=== PATIENT | male | born 1995 | race Caucasian/White ===

== ENCOUNTER 2022-03-29 16:47 | Observation (INO) | payer SELFPAY ==
[~2022-03-29] VITALS: Ht 182 cm; Wt 76.8 kg
[2022-03-29 18:56] LABS: BASOPHILS % (AUTO) 0 % (0-10); EOSINOPHILS % (AUTO) 1 % (0-10); HEMATOCRIT 45 % (40-54); LYMPHOCYTES # (AUTO) 1.1 10^3/uL (1.0-4.0); LYMPHOCYTES % (AUTO) 17 % (12-44); MEAN CORPUSCULAR HEMOGLOBIN 31 pg (25-34); MEAN CORPUSCULAR HGB CONC 35 g/dL (32-36); MEAN CORPUSCULAR VOLUME 88 fL (80-99); MEAN PLATELET VOLUME 9.6 fL (9.0-12.2); MONOCYTES # (AUTO) 0.4 10^3/uL (0.0-1.0); MONOCYTES % (AUTO) 6 % (0-12); NEUTROPHILS # (AUTO) 4.9 10^3/uL (1.8-7.8); NEUTROPHILS % (AUTO) 76 % (42-75); PLATELET COUNT 287 10^3/uL (130-400); WHITE BLOOD COUNT 6.4 10^3/uL (4.3-11.0)
[2022-03-29 19:03] LABS: INR 1.1 (0.8-1.4); PROTHROMBIN TIME PATIENT 14.2 SEC (12.2-14.7)
[2022-03-29 19:07] LABS: ALBUMIN 4.4 GM/DL (3.2-4.5); BILIRUBIN,TOTAL 0.4 MG/DL (0.1-1.0); CALCIUM 9.6 MG/DL (8.5-10.1); CREATININE SERUM 0.86 MG/DL (0.60-1.30); MAGNESIUM 1.9 MG/DL (1.6-2.4); POTASSIUM 3.6 MMOL/L (3.6-5.0); TOTAL PROTEIN 7.5 GM/DL (6.4-8.2)
--- NOTE | 2022-03-29 19:17 | ED Syncope ---
General Chief Complaint: Dizziness/Syncope Stated Complaint: ABNORMAL EKG Nursing Triage Note: PT AMB TO RM 10 WITH C/O SUDDEN ONSET OF DIZZINESS THIS AFTERNOON WHILE OUTSIDE WITH HIS KIDS. HE STATES HE KNELT DOWN AND WENT BLACK FOR A COUPLE OF SECONDS Source of Information: Patient Exam Limitations: No Limitations History of Present Illness Date Seen by Provider: Mar 29, 2022 Time Seen by Provider: 18:47 Initial Comments This 26-year-old gentleman presents to the emergency room with complaints of a syncopal episode that occurred earlier this afternoon. He was outside picking up his son when he suddenly felt lightheaded and dizzy. He went down to the ground and believes he had a brief loss of consciousness for a few seconds. He denies any chest pain or shortness of breath at any time today. He has had no nausea, vomiting or diarrhea except for some brief nausea at the time of the incident. He denies any injury when he fell. He reports prior episodes of chest pain that affected much of his left side including his arm. He reports he has never had a formal work-up for this chest pain. He presented to the walk-in clinic in [place] after the event this afternoon. An EKG was performed there demonstrating some ST elevation in V2 and V3. He was then directed to the ER. He denies any recent illness or drug or alcohol use. He reports a history of bradycardia and prior episodes of lightheadedness but he has not ever had syncope before today. He has no local provider. He saw Dr. Garcia years ago when he was in high school. Patient was moving dogs around the yard and on a chain just prior to the incident. He was not doing any strenuous activity. Allergies and Home Medications Allergies Coded Allergies: No Known Drug Allergies (Unverified , 03/29/22) Patient Home Medication List Home Medication List Reviewed: Yes Lisinopril (Lisinopril) 10 Mg Tablet, 10 MG PO DAILY Prescribed by: MARY JO BELLAMY on 03/30/22 0915 Last Action: Reviewed Review of Systems Constitutional: no symptoms reported EENTM: no symptoms reported Respiratory: no symptoms reported Cardiovascular: see HPI Gastrointestinal: see HPI Genitourinary: no symptoms reported Musculoskeletal: no symptoms reported Skin: no symptoms reported Psychiatric/Neurological: No Symptoms Reported Past Vlfcnmn-Abadgh-Msfnaa Hx Patient Social History Tobacco Use?: No Smokeless Tobacco Frequency: Current Everyday User Substance use?: No Alcohol Use?: Yes Alcohol type: Beer Alcohol Frequency: Rarely Pt feels they are or have been: No Past Medical History Surgery/Hospitalization HX: HTN, BRADYCARDIA Surgeries: No Respiratory: No Cardiac: Yes (History of bradycardia and chest pain) Neurological: No Genitourinary: No Gastrointestinal: No Musculoskeletal: No Endocrine: No HEENT: No Cancer: No Psychosocial: No Family Medical History Heart Disease (Father of [place] in his 50s) Physical Exam Vital Signs Vital Signs - First Documented 03/29/22 17:05 Temp 36.6 Pulse 60 Resp 18 B/P (MAP) 138/87 (104) Capillary Refill : Height, Weight, BMI Height: '" Weight: lbs. oz. kg; 22.00 BMI Method: General Appearance: No Apparent Distress, WD/WN, Thin HEENT: PERRL/EOMI, Normal ENT Inspection Neck: Normal Inspection; No Carotid Bruit, No JVD Cardiovascular: Regular Rate, Rhythm, No Edema, No Murmur Respiratory: Lungs Clear, Normal Breath Sounds, No Accessory Muscle Use Gastrointestinal: Normal Bowel Sounds, Soft, Tenderness (Epigastrium) Back: Normal Inspection Extremities: Normal Inspection Neurologic/Psychiatric: Alert, Oriented x3, No Motor/Sensory Deficits, Normal Mood/Affect Skin: Normal Color, Warm/Dry Progress/Results/Core Measures Results/Orders Lab Results Laboratory Tests Test 03/29/22 16:55 03/29/22 17:15 Range/Units Urine Opiates Screen NEGATIVE NEGATIVE Urine Oxycodone Screen NEGATIVE NEGATIVE Urine Methadone Screen NEGATIVE NEGATIVE Urine Propoxyphene Screen NEGATIVE NEGATIVE Urine Barbiturates Screen NEGATIVE NEGATIVE Ur Tricyclic Antidepressants Screen NEGATIVE NEGATIVE Urine Phencyclidine Screen NEGATIVE NEGATIVE Urine Amphetamines Screen NEGATIVE NEGATIVE Urine Methamphetamines Screen NEGATIVE NEGATIVE Urine Benzodiazepines Screen NEGATIVE NEGATIVE Urine Cocaine Screen NEGATIVE NEGATIVE Urine Cannabinoids Screen NEGATIVE NEGATIVE White Blood Count 6.4 4.3-11.0 10^3/uL Red Blood Count 5.18 4.30-5.52 10^6/uL Hemoglobin 16.0 13.3-17.7 g/dL Hematocrit 45 40-54 % Mean Corpuscular Volume 88 80-99 fL Mean Corpuscular Hemoglobin 31 25-34 pg Mean Corpuscular Hemoglobin Concent 35 32-36 g/dL Red Cell Distribution Width 11.6 10.0-14.5 % Platelet Count 287 130-400 10^3/uL Mean Platelet Volume 9.6 9.0-12.2 fL Immature Granulocyte % (Auto) 0 % Neutrophils (%) (Auto) 76 H 42-75 % Lymphocytes (%) (Auto) 17 12-44 % Monocytes (%) (Auto) 6 0-12 % Eosinophils (%) (Auto) 1 0-10 % Basophils (%) (Auto) 0 0-10 % Neutrophils # (Auto) 4.9 1.8-7.8 10^3/uL Lymphocytes # (Auto) 1.1 1.0-4.0 10^3/uL Monocytes # (Auto) 0.4 0.0-1.0 10^3/uL Eosinophils # (Auto) 0.0 0.0-0.3 10^3/uL Basophils # (Auto) 0.0 0.0-0.1 10^3/uL Immature Granulocyte # (Auto) 0.0 0.0-0.1 10^3/uL Erythrocyte Sedimentation Rate 4 0-15 MM/HR Prothrombin Time 14.2 12.2-14.7 SEC INR Comment 1.1 0.8-1.4 Activated Partial Thromboplast Time 32 24-35 SEC Sodium Level 142 135-145 MMOL/L Potassium Level 3.6 3.6-5.0 MMOL/L Chloride Level 105 98-107 MMOL/L Carbon Dioxide Level 22 21-32 MMOL/L Anion Gap 15 H 5-14 MMOL/L Blood Urea Nitrogen 15 7-18 MG/DL Creatinine 0.86 0.60-1.30 MG/DL Estimat Glomerular Filtration Rate 122 BUN/Creatinine Ratio 17 Glucose Level 104 70-105 MG/DL Calcium Level 9.6 8.5-10.1 MG/DL Corrected Calcium 9.3 8.5-10.1 MG/DL Magnesium Level 1.9 1.6-2.4 MG/DL Total Bilirubin 0.4 0.1-1.0 MG/DL Aspartate Amino Transf (AST/SGOT) 24 5-34 U/L Alanine Aminotransferase (ALT/SGPT) 20 0-55 U/L Alkaline Phosphatase 50 40-136 U/L Myoglobin 29.6 10.0-92.0 NG/ML Troponin I < 0.028 <0.028 NG/ML C-Reactive Protein High Sensitivity 0.06 0.00-0.50 MG/DL Total Protein 7.5 6.4-8.2 GM/DL Albumin 4.4 3.2-4.5 GM/DL Lipase 36 8-78 U/L TSH [place] Testing 0.83 0.35-4.94 UIU/ML Serum Alcohol < 10 <10 MG/DL My Orders Orders - SENA MASSEY MD Cbc With Automated Diff (03/29/22 18:49) Magnesium (03/29/22 18:49) Chest 1 View, Ap/Pa Only (03/29/22 18:49) Ekg Tracing (03/29/22 18:49) Comprehensive Metabolic Panel (03/29/22 18:49) Myoglobin Serum (03/29/22 18:49) Protime With Inr (03/29/22 18:49) Partial Thromboplastin Time (03/29/22 18:49) O2 (03/29/22 18:49) Monitor-Rhythm Ecg Trace Only (03/29/22 18:49) Ed Iv/Invasive Line Start (03/29/22 18:49) Troponin I [place] (03/29/22 18:49) Alcohol (03/29/22 19:09) Hs C Reactive Protein (03/29/22 19:09) Erythrocyte Sedimentation Rate (03/29/22 19:09) Drug Screen Stat (Urine) (03/29/22 19:09) Lipase (03/29/22 19:09) Thyroid Analyzer (03/29/22 19:09) Vital Signs/I&O 03/29/22 17:05 Temp 36.6 Pulse 60 Resp 18 B/P (MAP) 138/87 (104) Blood Pressure Mean: 104 Progress Progress Note #1: Time: 19:19 Progress Note Patient was seen and examined. Work-up is underway. Vital signs are stable at this time. Heart rate is in the 50s. Patient is asymptomatic at this time except for feeling tired. He does have some mild epigastric tenderness. Progress Note #2: Time: 19:51 Progress Note I reviewed the case with Dr. Hartmann and he has reviewed the EKG. There are concerns about this abrupt presentation of syncope without other explanation in conjunction with prior episodes of chest pain and abnormal EKG. He believes best course of action is to perform angiography. I have reviewed the nature of angiography with the patient and he is agreeable. Progress Note #3: Time: 20:[address] Hartmann is now here to see the patient. Initial ECG Impression Date: Mar 29, 2022 Initial ECG Impression Time: 18:40 Initial ECG Rate: 60 Initial ECG Rhythm: Normal Sinus Comment Sinus rhythm with ST elevation in V2 and V3 of uncertain etiology. Does not anabela ear ischemic in nature and patient does not have chest pain. QRS slightly prolonged at 117 ms. Diagnostic Imaging Diagonstic Imaging: Xray Plain Films/CT/US/NM/MRI: chest Comments Chest x-ray report reviewed. See report below: NAME: NIKOLAI SMITH [facility] REC#: [id number] PT STATUS: REG ER : 1995 PHYSICIAN: SENA MASSEY MD ADMIT DATE: 03/29/22/ER Draft Date of Exam:03/29/22 CHEST 1 VIEW, AP/PA ONLY INDICATION: Sudden onset of dizziness this afternoon while outside.. TECHNIQUE: Single view chest 7:36 PM. CORRELATION STUDY: None FINDINGS: The heart size, mediastinal configuration and pulmonary vascularity are within normal limits. The lungs are clear with no consolidating infiltrate. There is no significant effusion or pneumothorax. IMPRESSION: 1. Negative appearing single view chest. Dictated on workstation # [id number] Dict: 03/29/221936 Trans: 03/29/221936 DO [id number] Interpreted by: OLESYA SHAY DO Departure Communication (Admissions) Time/Spoke to Admitting Phy: 19:50 Dr. Hartmann Impression Primary Impression: Syncope Qualified Codes: R55 - Syncope and collapse Additional Impression: Abnormal EKG Disposition: ADMITTED INPATIENT Condition: Stable Admissions Decision to Admit Reason: Admit from ER (General) Decision to Admit/Date: Mar 29, 2022 Time/Decision to Admit Time: 19:50 Departure-Patient Inst. Referrals: NO,LOCAL PHYSICIAN (PCP/Family) Primary Care Physician Scripts Lisinopril (Lisinopril) 10 Mg Tablet 10 MG PO DAILY, #30 TAB Prov: MARK HARTMANN MD 03/30/22 SENA MASSEY MD Mar 29, 2022 19:17
[2022-03-29 19:37] LABS: LIPASE 36 U/L (8-78)
--- NOTE | 2022-03-29 19:38 | Diagnostic Imaging Report ---
INDICATION: Sudden onset of dizziness this afternoon while outside.. TECHNIQUE: Single view chest 7:36 PM. CORRELATION STUDY: None FINDINGS: The heart size, mediastinal configuration and pulmonary vascularity are within normal limits. The lungs are clear with no consolidating infiltrate. There is no significant effusion or pneumothorax. IMPRESSION: 1. Negative appearing single view chest. Dictated by: Dictated on workstation # [id number]
[2022-03-29 19:51] LABS: AMPHETAMINE SCREEN, URINE NEGATIVE (NEGATIVE); BARBITURATE SCREEN URINE NEGATIVE (NEGATIVE); BENZODIAZEPINES SCREEN URINE NEGATIVE (NEGATIVE); CANNABINOID SCREEN, URINE NEGATIVE (NEGATIVE); COCAINE SCREEN URINE NEGATIVE (NEGATIVE); METHADONE STAT NEGATIVE (NEGATIVE); OPIATE SCREEN URINE NEGATIVE (NEGATIVE); OXYCODONE STAT NEGATIVE (NEGATIVE); PROPOXYPHENE STAT NEGATIVE (NEGATIVE); TRICYCLIC ANTIDEPRESSANTS SCRE NEGATIVE (NEGATIVE)
[2022-03-29 19:59] LABS: TSH (THYROID ANALYZER) 0.83 UIU/ML (0.35-4.94)
[2022-03-29] MEDS ORDERED: NS IV 1000 ML 1,000 ML IV SCH (20:15)
[2022-03-29] MEDS ORDERED: LIDOCAINE 1% INJ 20 ML VIAL ONE (20:21)
[2022-03-29] MEDS ORDERED: HEParin 1000 UNIT/ML (10ML VIAL) FOR BOLUS ONE (20:21)
[2022-03-29] MEDS ORDERED: MIDAZOLAM 5 MG/5 ML (VERSED) VIAL ONE (20:21)
[2022-03-29] MEDS ORDERED: fentaNYL INJ 100 MCG/2 ML AMP ONE (20:21)
[2022-03-29] MEDS ORDERED: VERAPAMIL 5 MG/2 ML (CALAN) VIAL IV ONE (20:21)
[2022-03-29] MEDS ORDERED: NITRO DRIP 25000 MCG/D5W 250 ML IV ONE (20:22)
[2022-03-29] MEDS ORDERED: NS IV 1000 ML 0 ML ONE (20:22)
[2022-03-29] MEDS ORDERED: HEParin (CATH LAB) 2,000 ML IV ONE (20:22)
--- NOTE | 2022-03-29 20:25 | Cardiology History & Physical ---
HPI-Cardiology Cardiology Consultation Date of Consultation 03/29/22 Date of Admission Time Seen by Provider: 20:21 Indication: Syncope HPI 26 years old gentleman with history of hypertension, strong family history of heart disease, father at age 50 with heart attack. Has been having recurrent chest pain for the past few weeks. Had a syncopal episode today while carrying his son. Denied any chest pain but felt his heart racing. No similar episodes in the past. Patient went to the urgent care and he was sent to the emergency room due to EKG changes. On my evaluation, he was laying down in bed, denied any active chest pain. No palpitation. Mild epigastric discomfort. PMH-Cardiology Surgeries No Respiratory No Cardiovascular Yes (History of bradycardia and chest pain) Neurological No Genitourinary No Gastrointestinal No Musculoskeletal No Endocrine No HEENT No Cancer No Psychosocial No Other PMHx Hypertension Social History Patient Social History Marrital Status: Employed/Student: employed Smoking: Never smoker Dip or chew tobacco?: Yes Have you traveled recently?: No Alcohol Use?: Yes Family Hx Significant Family History: Heart Disease (Father of [place] in his 50s) Other Father in his 50s with heart attack ROS-Cardiology Review of Systems General: No Chills, No Night Sweats; Fatigue; No Malaise, No Appetite HEENT: No Head Aches, No Visual Changes, No Eye Pain, No Ear Pain, No Dysphasia, No Sinus Congestion, No Post Nasal Drip, No Sore Throat Pulmonary: No Dyspnea, No Cough, No Pleuritic Chest Pain Cardiovascular: Chest Pain, Other (Syncope); No: Palpitations, Orthopnea, Paroxysmal Noc. Dyspnea, Edema, Lt Headedness Gastrointestinal: No: Nausea, Vomiting, Abdominal Pain, Diarrhea, Constipation, Melena, Hematochezia Genitourinary: No Dysuria, No Frequency, No Incontinence, No Hematuria, No Retention Musculoskeletal: No: neck pain, shoulder pain, arm pain, back pain, hand pain, leg pain, foot pain Neurological: No: Weakness, Numbness, Incoordination, Change in speech, Confusion, Seizures Home Medications & Allergies Allergies: Coded Allergies: No Known Drug Allergies (Unverified , 03/29/22) Home Medication List Reviewed: Yes Exam-Cardiology Vital Signs Vital Signs Date Time Temp Pulse Resp B/P (MAP) Pulse Ox O2 Delivery O2 Flow Rate FiO2 03/29/22 17:05 36.6 60 18 138/87 (104) Exam General Appearance: Alert, Oriented X3, Cooperative, No Acute Distress HEENT: Atraumatic, PERRLA Respiratory: Clear to Auscultation, Normal Air Movement Cardiovascular: Regular Rate, Normal S1, Normal S2, No Murmurs Abdominal: Normal Bowel Sounds, Soft, No Tenderness, No Hepatosplenomegaly, No Masses Extremities: No Clubbing, No Cyanosis, No Edema, Normal Pulses, No Tenderness/Swelling Skin: No Rashes, No Breakdown, No Significant Lesion Neuro: Normal Gait, Normal Speech, Strength at 5/5 X4 Ext, Normal Tone, Sensation Intact Psych/Mental Status: Mental Status NL, Mood NL Results Labs Labs Laboratory Tests 03/29/22 16:55: Urine Opiates Screen NEGATIVE, Urine Oxycodone Screen NEGATIVE, Urine Methadone Screen NEGATIVE, Urine Propoxyphene Screen NEGATIVE, Urine Barbiturates Screen NEGATIVE, Ur Tricyclic Antidepressants Screen NEGATIVE, Urine Phencyclidine Screen NEGATIVE, Urine Amphetamines Screen NEGATIVE, Urine Methamphetamines Screen NEGATIVE, Urine Benzodiazepines Screen NEGATIVE, Urine Cocaine Screen NEGATIVE, Urine Cannabinoids Screen NEGATIVE 03/29/22 17:15: White Blood Count 6.4, Red Blood Count 5.18, Hemoglobin 16.0, Hematocrit 45, Mean Corpuscular Volume 88, Mean Corpuscular Hemoglobin 31, Mean Corpuscular Hemoglobin Concent 35, Red Cell Distribution Width 11.6, Platelet Count 287, Mean Platelet Volume 9.6, Immature Granulocyte % (Auto) 0, Neutrophils (%) (Auto) 76H, Lymphocytes (%) (Auto) 17, Monocytes (%) (Auto) 6, Eosinophils (%) (Auto) 1, Basophils (%) (Auto) 0, Neutrophils # (Auto) 4.9, Lymphocytes # (Auto) 1.1, Monocytes # (Auto) 0.4, Eosinophils # (Auto) 0.0, Basophils # (Auto) 0.0, Immature Granulocyte # (Auto) 0.0, Erythrocyte Sedimentation Rate 4, Prothrombin Time 14.2, INR Comment 1.1, Activated Partial Thromboplast Time 32, Sodium Level 142, Potassium Level 3.6, Chloride Level 105, Carbon Dioxide Level 22, Anion Gap 15H, Blood Urea Nitrogen 15, Creatinine 0.86, Estimat Glomerular Filtration Rate 122, BUN/Creatinine Ratio 17, Glucose Level 104, Calcium Level 9.6, Corrected Calcium 9.3, Magnesium Level 1.9, Total Bilirubin 0.4, Aspartate Amino Transf (AST/SGOT) 24, Alanine Aminotransferase (ALT/SGPT) 20, Alkaline Phosphatase 50, Myoglobin 29.6, Troponin I < 0.028, C-Reactive Protein High Sensitivity 0.06, Total Protein 7.5, Albumin 4.4, Lipase 36, TSH [place] Testing 0.83, Serum Alcohol < 10 A/P-Cardiology Admission Diagnosis Chest pain Syncope Hypertension Family history of atherosclerosis Admission Status: Observation Assessment/Plan Chest pain, EKG changes with ST elevation in V2 and V3. No reciprocal changes. Cardiac enzymes were negative. Patient had syncopal episode, uses tobacco and father in his 50s with myocardial infarction. I will proceed with cardiac catheterization possible PTCA Syncope, questionable vasovagal. Patient does not have any murmur suggestive of obstructive disease. Has been on lisinopril for the last month. Starting IV fluid and monitor cardiac enzymes Hypertension, poorly controlled, maintained on lisinopril. Monitor blood pressure Questionable hyperlipidemia, I will evaluate lipid profile Family history of premature coronary artery disease, father in his 50s with heart attack Tobaccoism, chewing tobacco, educated on avoiding tobacco products Clinical Quality Measures AMI/AHF: ASA po Prior to arrival: MARK Dumont MD Mar 29, 2022 20:25
--- NOTE | 2022-03-29 20:25 | Conscious Sedation/ASA ---
Conscious Sedation Pre-Proced Time 20:25 ASA Score 3 For ASA 3 and 4: Consider anesthesia and medical clearance. Also, for patients with a history of failed moderate sedation consider anesthesia. Airway Lungs Heart ASA score ASA 1: a normal healthy patient ASA 2: a patient with a mild systemic disease (mid diabetes, controlled hypertension, obesity x ASA 3: a patient with a severe systemic disease that limits activity (angina, COPD, prior Myocardial infarction) ASA 4: a patient with an incapacitating disease that is a constant threat to life (CHF, renal failure) ASA 5: a moribund patient not expected to survive 24 hrs. (ruptured aneurysm) ASA 6: a declared brain- patient whose organs are being harvested. For emergent operations, add the letter E after the classification Mallampati Classification Grade 3 Sedation Plan Analgesia, Amnesia, Plan communicated to team members, Discussed options with patient/fam, Discussed risks with patient/fam The patient is an appropriate candidate to undergo the planned procedure, sedation, and anesthesia. The patient immediately re-assessed prior to indication. MARK ZAVALA MD Mar 29, 2022 20:25
[2022-03-29] MEDS ORDERED: PATIENT MAY USE OWN MEDS, ALL PO SCH (21:15)
--- NOTE | 2022-03-29 21:16 | Cardiac Cath Report ---
Cardiac Cath Report Physician (s)/Dental Equipment Repairer (s) Physician MARK ZAVALA MD Pre-Procedure Diagnosis Pre-Procedure Diagnosis: Syncope Post-Procedure Note Procedure Start Date: Mar 29, 2022 Name of Procedure: Left heart catheterization Aortic root angiogram Aortic arch angiogram Findings/Procedure Note PROCEDURE NOTE: 26 years old gentleman admitted with syncope, has been having chest pain for the past month, father at age 50 with myocardial infarction, chewing tobacco. Initial EKG showed ST elevation in V2 and V3. I decided to proceed with cardiac catheterization possible PTCA. After explaining the procedure to the patient, all pros and cons were explained, all questions were answered. The patient signed the consent and then he was placed on the cardiac catheterization laboratory. Groin was prepped SL fashion local anesthesia was used. Sheath placed in the right radial artery, [place] catheter advanced to the left ventricular cavity, left ventriculogram was done, pullback LV to aorta was done, engaged the right and left coronary system, angiogram was done. I exchanged the catheter and used a pigtail catheter, advanced it to the aortic root and aortic root angiogram was done then I pulled back to the aortic arch and aortic arch angiogram was done. At the end of the procedure the sheath was removed. Vascular band was used FINDINGS: Hemodynamics LV 130/20, end-diastolic pressure of 20 Aorta 129/86 mean of 79 ANATOMY: Left Main is free of obstructive disease Left Anterior Descending is moderate in size with no obstructive disease Left Circumflex is very small artery, with no significant obstructive disease Right Coronary Artery is dominant artery with no significant obstructive disease LV Gram was done showing normal left ventricular size and systolic function estimate ejection fraction 60% Aorta evaluation showed with aortic root angiogram normal aortic root, normal origin of the coronaries, no dissection or aneurysm. Normal aortic valve. Aortic arch angiogram was done showing normal aortic arch, no dissection or aneurysm, normal origin of the brachiocephalic artery, left subclavian and left carotid arteries CONCLUSION: 1. Normal coronary system, very small circumflex artery with large dominant right coronary artery 2. Normal left ventricular size and systolic function ejection fraction 60%, no significant gradient across the left ventricular outflow tract 3. Normal aortic root 4. Normal aortic arch and great vessels of the neck DISCUSSION AND RECOMMENDATION: Abnormal EKG is probably juvenile pattern. No significant obstructive disease was noted and normal aortic root and aortic arch. Anesthesia Type: Conscious Sedation Estimated blood loss (mL): 10 ml Contrast Amount: 65 ml Total Radiation Dose: 236 mGy Post-Procedure Diagnosis Post-operative diagnosis: Chest pain Syncope Hypertension Tobaccoism MARK ZAVALA MD Mar 29, 2022 21:16
[2022-03-29 21:30] VITALS: BP 158/88
[2022-03-29 21:45] VITALS: BP 127/79
[2022-03-29] MEDS: NS IV 1000 ML 1,000 ML IV SCH (21:49)
[2022-03-29 22:00] VITALS: BP 128/73
[2022-03-29 22:15] VITALS: BP 124/69
[2022-03-29 22:45] VITALS: BP 125/70
[2022-03-29 23:15] VITALS: BP 126/92
[2022-03-30] VITALS (7 sets, daily range): BP systolic 112–152; BP diastolic 65–104
[2022-03-30 05:19] LABS: HEMATOCRIT 44 % (40-54); HEMOGLOBIN 15.1 g/dL (13.3-17.7); MEAN CORPUSCULAR HEMOGLOBIN 31 pg (25-34); MEAN CORPUSCULAR HGB CONC 35 g/dL (32-36); MEAN CORPUSCULAR VOLUME 89 fL (80-99); MEAN PLATELET VOLUME 9.3 fL (9.0-12.2); PLATELET COUNT 239 10^3/uL (130-400); WHITE BLOOD COUNT 5.1 10^3/uL (4.3-11.0)
[2022-03-30 05:30] LABS: POTASSIUM 3.5 MMOL/L (3.6-5.0)
[2022-03-30 05:32] LABS: CALCIUM 8.4 MG/DL (8.5-10.1)
[2022-03-30 05:36] LABS: CREATININE SERUM 0.91 MG/DL (0.60-1.30)
[2022-03-30] MEDS: NS IV 1000 ML 1,000 ML IV SCH ×2 (07:49→17:24)
[2022-03-30] MEDS ORDERED: LISI10TA25 PO (09:15)
[2022-03-30] MEDS ORDERED: ACETAMINOPHEN 325 MG TABLET PO PRN (11:00)
[2022-03-30] MEDS ORDERED: ACETAMINOPHEN 325 MG TABLET ONE (11:13)
--- NOTE | 2022-03-30 12:02 | Cardiology Progress Note ---
Subjective Date Seen by Provider: Mar 30, 2022 Time Seen by Provider: 12:00 Subjective/Events-last exam Patient was seen at bedside, laying down comfortably, feeling better today. Review of Systems General: No Chills, No Night Sweats, No Fatigue, No Malaise, No Appetite, No Other HEENT: No Head Aches, No Visual Changes, No Eye Pain, No Ear Pain, No Dysphasia, No Sinus Congestion, No Post Nasal Drip, No Sore Throat, No Other Pulmonary: No Dyspnea, No Cough, No Pleuritic Chest Pain, No Other Cardiovascular: No: Chest Pain, Palpitations, Orthopnea, Paroxysmal Noc. Dyspnea, Edema, Lt Headedness, Other Objective-Cardiology Exam Last Set of Vital Signs Vital Signs 03/30/22 03/30/22 08:22 09:00 Temp 36.2 Pulse 75 Resp 16 B/P (MAP) 124/78 (93) Pulse Ox 98 O2 Delivery Room Air I&O Intake and Output 03/30/22 00:00 Intake Total 50 ml Balance 50 ml Intake Oral 50 ml Daily Weight Change No General: Alert, Oriented X3, Cooperative, No Acute Distress HEENT: Atraumatic, PERRLA Lungs: Clear to Auscultation, Normal Air Movement Heart: Regular Rate, Normal S1, Normal S2, No Murmurs Abdomen: Normal Bowel Sounds, Soft, No Tenderness, No Hepatosplenomegaly, No Masses Extremities: No Clubbing, No Cyanosis, No Edema, Normal Pulses, No Ten derness/Swelling Skin: No Rashes, No Breakdown, No Significant Lesion Neuro: Normal Gait, Normal Speech, Strength at 5/5 X4 Ext, Normal Tone, Sensation Intact Psych/Mental Status: Mental Status NL, Mood NL Results Lab Laboratory Tests 03/29/22 17:15 03/30/22 04:40 A/P-Cardiology Admission Diagnosis Chest pain Syncope Hypertension Family history of atherosclerosis Assessment/Plan Chest pain, EKG changes with ST elevation in V2 and V3. No reciprocal changes. Cardiac enzymes were negative. Patient had syncopal episode, uses tobacco and father in his 50s with myocardial infarction. Repeat EKG on March 30, 2020 to establish the diagnosis of Brugada syndrome I had a long discussion with the patient regarding the need for ICD. I reached out to to evaluate the possibility of transferring the patient to for evaluation. Cardiac catheterization was done on March 29, 2022 showing mild disease nonobstructive disease Syncope, questionable vasovagal. EKG suggestive of Brugada syndrome Hypertension, monitor blood pressure Family history of premature coronary artery disease, father in his 50s with heart attack Tobaccoism, chewing tobacco, educated on avoiding tobacco products MARK ZAVALA MD Mar 30, 2022 12:02
[2022-03-31 00:17] VITALS: BP 118/82
[2022-03-31] MEDS: NS IV 1000 ML 1,000 ML IV SCH (03:42)
[2022-03-31 04:06] VITALS: BP 122/97
[2022-03-31 07:54] VITALS: BP 141/83
[2022-03-31] MEDS ORDERED: DIMENHYDRINATE 50 MG PO ONE (08:45)
[2022-03-31] MEDS ORDERED: MECLIZINE 25 MG (ANTIVERT) TAB PO ONE (09:00)
--- NOTE | 2022-03-31 09:08 | Cardiology Discharge Summary ---
Discharge Summary Hospital Course Problems Reviewed?: Yes Problems/Diagnosis: (1) Abnormal EKG Status: Acute (2) Syncope Status: Acute Qualifiers: Qualified Codes: R55 - Syncope and collapse Hospital Course Date of Admission: Mar 29, 2022 at 21:11 Admission Diagnosis : Family Physician/Provider: No,Local Physician Date of Discharge: 03/31/22 Discharge Diagnosis: [Syncope Brugada syndrome Hypertension Tobaccoism] Hospital Course: [ Chest pain, EKG changes with ST elevation in V2 and V3. No reciprocal changes. Cardiac enzymes were negative. Patient had syncopal episode, uses tobacco and father in his 50s with myocardial infarction. Repeat EKG on March 30, 2020 to establish the diagnosis of Brugada syndrome I had a long discussion with the patient regarding the need for ICD. I discussed the management plan with Dr. Alcantara at , recommendation for subcutaneous ICD implant, not available in our area. Patient will be transferred to for evaluation and possible ICD implant Cardiac catheterization was done on March 29, 2022 showing mild disease nonobstructive disease Syncope, questionable vasovagal. EKG suggestive of Brugada syndrome Hypertension, monitor blood pressure Family history of premature coronary artery disease, father in his 50s with heart attack Tobaccoism, chewing tobacco, educated on avoiding tobacco products] Labs and Pending Lab Test: Home Meds Active Lisinopril 10 Mg Tablet 10 Mg PO DAILY Assessment/Pt DC Instructions Transfer to Arrangement for follow-up as an outpatient Discharge Diet: No Restrictions, Low Sodium Diet Discharge Physical Examination Allergies: Coded Allergies: No Known Drug Allergies (Unverified , 03/29/22) General Appearance: No Apparent Distress, WD/WN HEENT: PERRL/EOMI, TMs Normal, Normal ENT Inspection, Pharynx Normal Respiratory: Chest Non Tender, Lungs Clear, Normal Breath Sounds, No Accessory Muscle Use, No Respiratory Distress Cardiovascular: Regular Rate, Rhythm, No Edema, No Gallop, No JVD, No Murmur, Normal Peripheral Pulses Gastrointestinal: Normal Bowel Sounds, No Organomegaly, No Pulsatile Mass, Non Tender, Soft Extremity: Normal Capillary Refill, Normal Inspection, Normal Range of Motion, Non Tender, No Calf Tenderness, No Pedal Edema Skin: Normal Color, Warm/Dry Neurologic/Psychiatric: Alert, Oriented x3, No Motor/Sensory Deficits, Normal Mood/Affect, 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
[2022-03-31] MEDS ORDERED: ENOXAPARIN 40 MG/0.4 ML (LOVENOX) SYR SQ SCH (09:15)
[2022-03-31 09:20] VITALS: BP 141/83
== END 2022-03-31 09:25 | disposition short-term general hospital (02) ==
LOC: ER 16:49 → CATH 19:59 → ICU 21:11 → CSD 03-30 10:43
PROVIDERS: ADMIT Internal Medicine Cardiovascular Disease; ATTEND Internal Medicine Cardiovascular Disease
DX: R55 Syncope and collapse (principal); I49.8 Other specified cardiac arrhythmias; I10 Essential (primary) hypertension; F17.220 Nicotine dependence, chewing tobacco, uncomplicated; Z82.49 Family history of ischemic heart disease and other diseases of the circulatory system
CPT/HCPCS: 36221; 71045; 80048; 80053; 80061; 80306; 83690; 83735; 83874; 84443; 84484; 85025; 85027; 85610; 85652; 85730; 86141; 93041; 93306; 93458; 93567; 99284; C1769; C1894; G0480; 36415; 80320; 93005

== ENCOUNTER 2022-05-03 17:33 | Emergency (ER) | payer BC, OTHER ==
[~2022-05-03] VITALS: Ht 182.9 cm; Wt 75.3 kg
[~2022-05-03 17:33] MED LIST: LISI10TA25 PO
--- NOTE | 2022-05-03 17:38 | ED Cardiac General ---
History of Present Illness General Chief Complaint: Chest Pain Stated Complaint: CP History of Present Illness Date Seen by Provider: May 03, 2022 Time Seen by Provider: 17:38 Initial Comments 26-year-old male with PMH of Brugada syndrome with cath on March 29, and then transferred from [facility] to for ICD placement, is here with complaints of chest pain over the ICD implantation site which began today. Patient states that he has not been getting much rest after his procedure with ICD implantation, and he has been running after his tolerance and been picking them up and and also been lifting heavy objects at work, and thinks he may have upset the procedure site which is causing the pain. Denies fever, discharge from site, shortness of breath, abdominal pain, nausea and vomiting, diaphoresis, palpitations, headache, dizziness. Allergies and Home Medications Allergies Coded Allergies: No Known Drug Allergies (Unverified , 03/29/22) Patient Home Medication List Home Medication List Reviewed: Yes Lisinopril (Lisinopril) 10 Mg Tablet, 10 MG PO DAILY Prescribed by: MARY JO BELLAMY on 03/30/22 0915 Review of Systems Review of Systems Constitutional: no symptoms reported EENTM: No Symptoms Reported Respiratory: No Symptoms Reported Cardiovascular: Chest Pain Gastrointestinal: No Symptoms Reported Genitourinary: No Symptoms Reported Musculoskeletal: no symptoms reported Skin: no symptoms reported Psychiatric/Neurological: No Symptoms Reported Endocrine: No Symptoms Reported Hematologic/Lymphatic: No Symptoms Reported Past Vslputw-[id number] Hx Past Medical History Surgery/Hospitalization HX: HTN, BRADYCARDIA Surgeries: No Respiratory: No Cardiac: Yes (History of bradycardia and chest pain) Neurological: No Genitourinary: No Gastrointestinal: No Musculoskeletal: No Endocrine: No HEENT: No Cancer: No Psychosocial: No Family Medical History Heart Disease Physical Exam Vital Signs Vital Signs - First Documented 05/03/22 17:36 Temp 36.1 Pulse 63 Resp 16 B/P (MAP) 145/73 (97) Pulse Ox 98 O2 Delivery Room Air Capillary Refill : Height, Weight, BMI Height: '" Weight: lbs. oz. kg; 23.18 BMI Method: General Appearance: No Apparent Distress, WD/WN HEENT: PERRL/EOMI Neck: Full Range of Motion, Normal Inspection, Non Tender, Supple Respiratory: Chest Non Tender, Lungs Clear, Normal Breath Sounds Cardiovascular: Regular Rate, Rhythm, No Edema, Other (lower sternal area: shows healed implantation scar which is about 3 cm long. No localized inflammation, no discharge. Mild tenderness on palpation. ) Gastrointestinal: Normal Bowel Sounds, Non Tender, Soft Neurologic/Psychiatric: Alert, Oriented x3, No Motor/Sensory Deficits Skin: Normal Color Lymphatic: No Adenopathy Progress/Results/Core Measures Results/Orders Lab Results Laboratory Tests Test 05/03/22 17:40 05/03/22 18:05 Range/Units White Blood Count 6.1 4.3-11.0 10^3/uL Red Blood Count 5.11 4.30-5.52 10^6/uL Hemoglobin 15.6 13.3-17.7 g/dL Hematocrit 45 40-54 % Mean Corpuscular Volume 87 80-99 fL Mean Corpuscular Hemoglobin 31 25-34 pg Mean Corpuscular Hemoglobin Concent 35 32-36 g/dL Red Cell Distribution Width 11.7 10.0-14.5 % Platelet Count 251 130-400 10^3/uL Mean Platelet Volume 9.1 9.0-12.2 fL Immature Granulocyte % (Auto) 0 % Neutrophils (%) (Auto) 61 42-75 % Lymphocytes (%) (Auto) 27 12-44 % Monocytes (%) (Auto) 9 0-12 % Eosinophils (%) (Auto) 3 0-10 % Basophils (%) (Auto) 0 0-10 % Neutrophils # (Auto) 3.7 1.8-7.8 10^3/uL Lymphocytes # (Auto) 1.7 1.0-4.0 10^3/uL Monocytes # (Auto) 0.5 0.0-1.0 10^3/uL Eosinophils # (Auto) 0.2 0.0-0.3 10^3/uL Basophils # (Auto) 0.0 0.0-0.1 10^3/uL Immature Granulocyte # (Auto) 0.0 0.0-0.1 10^3/uL Prothrombin Time 12.9 12.2-14.7 SEC INR Comment 0.9 0.8-1.4 Activated Partial Thromboplast Time 26 24-35 SEC D-Dimer 0.27 0.00-0.49 UG/ML Sodium Level 140 135-145 MMOL/L Potassium Level 4.2 3.6-5.0 MMOL/L Chloride Level 102 98-107 MMOL/L Carbon Dioxide Level 29 21-32 MMOL/L Anion Gap 9 5-14 MMOL/L Blood Urea Nitrogen 12 7-18 MG/DL Creatinine 1.09 0.60-1.30 MG/DL Estimat Glomerular Filtration Rate 95 BUN/Creatinine Ratio 11 Glucose Level 83 70-105 MG/DL Calcium Level 9.3 8.5-10.1 MG/DL Corrected Calcium 8.5-10.1 MG/DL Magnesium Level 2.0 1.6-2.4 MG/DL Total Bilirubin 0.3 0.1-1.0 MG/DL Aspartate Amino Transf (AST/SGOT) 24 5-34 U/L Alanine Aminotransferase (ALT/SGPT) 21 0-55 U/L Alkaline Phosphatase 51 40-136 U/L Troponin I < 0.30 <0.30 NG/ML Pro-B-Type Natriuretic Peptide 7.8 <75.0 PG/ML Total Protein 7.8 6.4-8.2 GM/DL Albumin 4.6 H 3.2-4.5 GM/DL Urine Color YELLOW Urine Clarity CLOUDY Urine pH 8.0 5-9 Urine Specific [place] 1.015 L 1.016-1.022 Urine Protein NEGATIVE NEGATIVE Urine Glucose (UA) NEGATIVE NEGATIVE Urine Ketones NEGATIVE NEGATIVE Urine Nitrite NEGATIVE NEGATIVE Urine Bilirubin NEGATIVE NEGATIVE Urine Urobilinogen 0.2 < = 1.0 MG/DL Urine Leukocyte Esterase NEGATIVE NEGATIVE Urine RBC (Auto) NEGATIVE NEGATIVE Urine RBC 0-2 /HPF Urine WBC 2-5 /HPF Urine Crystals NONE /LPF Urine Bacteria LARGE H /HPF Urine Casts NONE /LPF Urine Mucus LARGE H /LPF Urine Culture Indicated YES Urine Opiates Screen NEGATIVE NEGATIVE Urine Oxycodone Screen NEGATIVE NEGATIVE Urine Methadone Screen NEGATIVE NEGATIVE Urine Propoxyphene Screen NEGATIVE NEGATIVE Urine Barbiturates Screen NEGATIVE NEGATIVE Ur Tricyclic Antidepressants Screen NEGATIVE NEGATIVE Urine Phencyclidine Screen NEGATIVE NEGATIVE Urine Amphetamines Screen NEGATIVE NEGATIVE Urine Methamphetamines Screen NEGATIVE NEGATIVE Urine Benzodiazepines Screen NEGATIVE NEGATIVE Urine Cocaine Screen NEGATIVE NEGATIVE Urine Cannabinoids Screen NEGATIVE NEGATIVE My Orders Orders - KEIRA MORAES MD Cbc With Automated Diff (05/03/22 17:42) Magnesium (05/03/22 17:42) Chest 1 View Ap/Pa Only (05/03/22 17:42) Ekg Tracing (05/03/22 17:42) Comprehensive Metabolic Panel (05/03/22 17:42) Protime With Inr (05/03/22 17:42) Partial Thromboplastin Time (05/03/22 17:42) O2 (05/03/22 17:42) Monitor-Rhythm Ecg Trace Only (05/03/22 17:42) Aspirin Chewable Tablet (Baby Aspirin Ch (05/03/22 17:45) Troponin I Fs (05/03/22 17:42) Probnp Fs (05/03/22 17:42) Ed Iv/Invasive Line Start (05/03/22 17:42) Fibrin Degradation Products (05/03/22 17:42) Drug Screen Stat (Urine) (05/03/22 17:43) Ua Culture If Indicated (05/03/22 17:43) Urine Culture (05/03/22 18:05) Medications Given in ED Current Medications Medications Dose Ordered Sig/Brenna Route Start Time Stop Time Status Last Admin Dose Admin Aspirin 324 mg ONCE ONCE PO 05/03/22 17:45 05/03/22 17:46 DC 05/03/22 18:02 324 MG Vital Signs/I&O 05/03/22 17:36 Temp 36.1 Pulse 63 Resp 16 B/P (MAP) 145/73 (97) Pulse Ox 98 O2 Delivery Room Air Progress Progress Note : Progress Note 1. ACS RULE OUT: - EKG/ troponin/ CXR: unremarkable - Other labs unremarkable -The patient was seen in the ED, and treated appropriately to presentation at a specific point in time. Patient is informed that there is a possibility that disease and illness can evolve and change in acuity rapidly or slowly after patient is discharged from the ER. Precautionary advice given to the patient for immediate return to ER if symptoms worsen or do not resolve, and to seek emergency care sooner rather than later. Pt also advised on the importance of PCP follow up and compliance with management and follow up plan with PCP and/or specialist, as this is part of the management plan. Pt verbally expressed understanding. 2. ICD IMPLANTATION SITE PAIN: - No sign of infection - Ibuprofen prn pain, and follow up with Cardiology and ICD implanter at [facility]. Departure Impression Primary Impression: ICD (implantable cardioverter-defibrillator) in place Additional Impressions: Localized pain Ruled out for myocardial infarction Disposition: HOME, SELF-CARE Condition: Stable Departure-Patient Inst. Referrals: MARK ZAVALA MD, AMANDA S APRN (PCP) Primary Care Physician Patient Instructions: Chest Pain That Is Not Caused by the Heart (DC) Add. Discharge Instructions: - Ibuprofen as needed for pain, and follow up with Cardiology and ICD implanter at [facility]. - Return to ER if symptoms worsen or do not improve All discharge instructions reviewed with patient and/or family. Voiced understanding. Work/School Note: Work Release Form Date Seen in the Emergency Department: May 03, 2022 Return to Work: May 07, 2022 Restrictions: Need Release from Doctor Other Restrictions Listed Below: No heavy lifting KEIRA MORAES MD May 03, 2022 17:38
[2022-05-03] MEDS ORDERED: ASPIRIN 81 MG CHEW (CHILDREN'S ASA) PO ONE (17:45)
[2022-05-03 17:52] LABS: BASOPHILS % (AUTO) 0 % (0-10); EOSINOPHILS # (AUTO) 0.2 10^3/uL (0.0-0.3); EOSINOPHILS % (AUTO) 3 % (0-10); HEMATOCRIT 45 % (40-54); HEMOGLOBIN 15.6 g/dL (13.3-17.7); LYMPHOCYTES # (AUTO) 1.7 10^3/uL (1.0-4.0); LYMPHOCYTES % (AUTO) 27 % (12-44); MEAN CORPUSCULAR HEMOGLOBIN 31 pg (25-34); MEAN CORPUSCULAR HGB CONC 35 g/dL (32-36); MEAN CORPUSCULAR VOLUME 87 fL (80-99); MEAN PLATELET VOLUME 9.1 fL (9.0-12.2); MONOCYTES # (AUTO) 0.5 10^3/uL (0.0-1.0); MONOCYTES % (AUTO) 9 % (0-12); NEUTROPHILS # (AUTO) 3.7 10^3/uL (1.8-7.8); NEUTROPHILS % (AUTO) 61 % (42-75); PLATELET COUNT 251 10^3/uL (130-400); WHITE BLOOD COUNT 6.1 10^3/uL (4.3-11.0)
--- NOTE | 2022-05-03 17:59 | Diagnostic Imaging Report ---
INDICATION: Chest pain. EXAMINATION: Portable chest at 5:49 PM. Heart size and pulmonary vascularity are normal. Lungs are clear. There are no effusions or pneumothoraces. There is an ICD. IMPRESSION: No acute abnormalities in the chest. Dictated by: Dictated on workstation # [id number]
[2022-05-03 18:02] LABS: INR 0.9 (0.8-1.4); PROTHROMBIN TIME PATIENT 12.9 SEC (12.2-14.7)
[2022-05-03 18:14] LABS: ALANINE AMINOTRANSFERASE 21 U/L (0-55); ALBUMIN 4.6 GM/DL (3.2-4.5); ALKALINE PHOSPHATASE 51 U/L (40-136); BILIRUBIN,TOTAL 0.3 MG/DL (0.1-1.0); BUN/CREATININE RATIO 11; CALCIUM 9.3 MG/DL (8.5-10.1); CARBON DIOXIDE 29 MMOL/L (21-32); CHLORIDE 102 MMOL/L (98-107); CREATININE SERUM 1.09 MG/DL (0.60-1.30); GFR ESTIMATED 95; GLUCOSE 83 MG/DL (70-105); POTASSIUM 4.2 MMOL/L (3.6-5.0); SODIUM 140 MMOL/L (135-145); TOTAL PROTEIN 7.8 GM/DL (6.4-8.2)
[2022-05-03 18:16] LABS: BILIRUBIN,URINE NEGATIVE (NEGATIVE); COLOR,URINE YELLOW; GLUCOSE, URINE (UA) NEGATIVE (NEGATIVE); KETONES,URINE NEGATIVE (NEGATIVE); LEUKOCYTE ESTERASE ,URINE NEGATIVE (NEGATIVE); NITRITE,URINE NEGATIVE (NEGATIVE); PROTEIN,URINE NEGATIVE (NEGATIVE)
[2022-05-03 18:18] LABS: BACTERIA,URINE LARGE /HPF; CLARITY,URINE CLOUDY; RBC,URINE 0-2 /HPF
[2022-05-03 18:24] LABS: AMPHETAMINE SCREEN, URINE NEGATIVE (NEGATIVE); BARBITURATE SCREEN URINE NEGATIVE (NEGATIVE); BENZODIAZEPINES SCREEN URINE NEGATIVE (NEGATIVE); CANNABINOID SCREEN, URINE NEGATIVE (NEGATIVE); COCAINE SCREEN URINE NEGATIVE (NEGATIVE); METHADONE STAT NEGATIVE (NEGATIVE); OPIATE SCREEN URINE NEGATIVE (NEGATIVE); OXYCODONE STAT NEGATIVE (NEGATIVE); PROPOXYPHENE STAT NEGATIVE (NEGATIVE); TRICYCLIC ANTIDEPRESSANTS SCRE NEGATIVE (NEGATIVE)
[2022-05-03 18:54] VITALS: BP 145/73
== END 2022-05-03 18:56 | disposition home or self-care (01) ==
LOC: EDUNIT# 17:33 → ER FS 17:33
DX: R07.9 Chest pain, unspecified (principal); Z95.810 Presence of automatic (implantable) cardiac defibrillator
CPT/HCPCS: 36415; 71045; 80053; 80306; 81000; 83735; 83880; 84484; 85025; 85379; 85610; 85730; 87088; 93005; 93041